=== PATIENT | male | born 1990 | race Two or more races ===

== ENCOUNTER 2023-12-26 05:37 | Day surgery (SDC) | payer MEDICAID ==
[2023-12-18 15:02] LABS: BASOPHILS % (AUTO) 0.6 % (0-1); EOSINOPHILS # (AUTO) 0.3 X10'3 (0-0.9); EOSINOPHILS % (AUTO) 5.1 % (0-6); MEAN CORPUSCULAR HEMOGLOBIN 33.2 PG (27.0-31.0); MEAN CORPUSCULAR HGB CONC 34.8 g/dL (33.0-36.5); MEAN CORPUSCULAR VOLUME 95.5 FL (78-98); MEAN PLATELET VOLUME 8.2 FL (7.4-10.4); MONOCYTES # (AUTO) 0.7 X10'3 (0-0.9); MONOCYTES % (AUTO) 10.6 % (2-12); NEUTROPHILS # (AUTO) 2.2 X10'3 (1.8-7.7); NEUTROPHILS % (AUTO) 35.7 % (42-75); PRE OP HEMATOCRIT 42.7 % (42.0-52.0); PRE OP HEMOGLOBIN 14.9 g/dL (14.0-17.9); PRE OP PLATELET COUNT 253 X10'3 (140-440); PRE OP WHITE BLOOD COUNT 6.2 10'3 (4.8-10.8); RED BLOOD COUNT 4.47 X10'6 (4.70-6.10); RED CELL DISTRIBUTION WIDTH 12.8 % (11.5-14.5)
[2023-12-18 15:12] LABS: ALBUMIN 4.1 G/DL (3.4-5.0); ALBUMIN/GLOBULIN RATIO 1.2 (1.1-1.5); ALKALINE PHOSPHATASE 95 IU/L (46-116); BLOOD UREA NITROGEN 11 MG/DL (7-18); BUN/CREATININE RATIO 8.2 (10.0-20.0); CALCIUM 8.8 MG/DL (8.5-10.1); CHLORIDE 105 MMOL/L (99-107); CREATININE 1.34 MG/DL (0.60-1.10); PRE OP ALT 70 U/L (30-65); PRE OP ANION GAP 6 (8-16); PRE OP AST 27 U/L (10-37); PRE OP BILIRUB, TOTAL 0.6 MG/DL (0.0-1.0); PRE OP GLUCOSE 88 MG/DL (70-104); PRE OP POTASSIUM 3.8 MMOL/L (3.4-5.1); PRE OP SODIUM 143 MMOL/L (135-145); TOTAL CARBON DIOXIDE 31.7 MMOL/L (24-32); TOTAL PROTEIN 7.4 G/DL (6.4-8.2); eGFR 61 ML/MIN
[2023-12-26] VITALS (15 sets, daily range): BP systolic 110–133; BP diastolic 72–93; PULSE 45–80; RESP 12–19; TEMP 98; O2SAT 95–100
[~2023-12-26] VITALS: Ht 182.9 cm; Wt 93.1 kg
[~2023-12-26 05:37] MED LIST: NO HOME MEDS
[2023-12-26] MEDS: ringers solution, lacted 1,000 ML IV SCH (06:10)
[2023-12-26] MEDS: famotidine 20mg tablet PO ONE (06:12)
[2023-12-26] MEDS: cefazolin 2gm/D5W 100mL 100 ML IV ONE (06:13)
[2023-12-26] MEDS ORDERED: fentaNYL/PF 50MCG/1 ML 2ML syringe ONE (07:11)
[2023-12-26] MEDS ORDERED: midazolam 1 mg/ML 2ml injection ONE (07:12)
[2023-12-26] MEDS ORDERED: propofol inj 20 ML IV ONE (07:12)
[2023-12-26] MEDS ORDERED: rocuronium 10mg/ml inj IV ONE (07:12)
[2023-12-26] MEDS ORDERED: proCHLORperazine 10 MG/2 ml inj IV PRN (07:15)
[2023-12-26] MEDS ORDERED: meperidine/PF 25mg/ml syringe IV PRN ×3 (07:15)
[2023-12-26] MEDS ORDERED: morphine 4 MG/ML inj SYRINge IV PRN (07:15)
[2023-12-26] MEDS ORDERED: ringers solution, lacted 1,000 ML IV SCH (07:15)
[2023-12-26] MEDS ORDERED: ondansetron/PF 4mg/2ml inj IV PRN (07:15)
[2023-12-26] MEDS ORDERED: morphine 2 MG/ML inj. syringe IV PRN (07:15)
[2023-12-26] MEDS ORDERED: sevoflurane 250ml liquid IH ONE (07:21)
[2023-12-26] MEDS: BUPIVAcaine/PF 2.5mg/ml (0.25%) 10ml vial ONE (07:41)
[2023-12-26] MEDS: LIDOcaine 1% 30ml preserv. free vial ONE (07:42)
[2023-12-26] MEDS ORDERED: dexamethasone sod phosphate 4mg/ml inj. ONE (08:31)
[2023-12-26] MEDS ORDERED: ondansetron/PF 4mg/2ml inj ONE (08:31)
[2023-12-26] MEDS ORDERED: neostigmine methylsulfate 1 MG/ML 10ml vial ONE (08:31)
[2023-12-26] MEDS ORDERED: glycopyrrolate 0.2mg/ml inj ONE (08:48)
[2023-12-26] MEDS: HYDROcodone/acetaminophen 5mg/325mg tablet PO PRN (10:13)
== END 2023-12-26 11:23 | disposition home or self-care (01) ==
LOC: PAS 05:37
PROVIDERS: ATTEND Surgery
DX: K40.90 Unilateral inguinal hernia, without obstruction or gangrene, not specified as recurrent (principal); Z91.018 Allergy to other foods
CPT/HCPCS: 36415; 49650; 80053; 82948; 85025; C1781; J0690; J1100; J2250; J2405; J2704; J2710; J3010; J3490; J7030; J7120; S2900; Z7506; Z7508; Z7512; A4215; A4618